=== PATIENT | male | born 1965 | race Caucasian/White ===

== ENCOUNTER 2017-12-01 09:42 | Day surgery (SDC) | payer MEDICAID ==
[~2017-12-01] VITALS: Ht 177.8 cm; Wt 90.9 kg
[2017-12-01] MEDS ORDERED: SODIUM CHLORIDE 0.9% 1,000 ML IV SCH (10:49)
[2017-12-01 10:51] VITALS: BP 105/82
[2017-12-01] MEDS ORDERED: MIRT15TA4 PO (11:06)
[2017-12-01] MEDS ORDERED: MONT10TA9 PO (11:06)
[2017-12-01] MEDS ORDERED: SIMV40TA3 PO (11:06)
[2017-12-01] MEDS ORDERED: MELO15TA24 PO (11:06)
[2017-12-01] MEDS ORDERED: CARV-39 PO (11:06)
[2017-12-01] MEDS ORDERED: ALBU8.5H8 INH (11:06)
[2017-12-01] MEDS ORDERED: SERT100T5 PO (11:06)
[2017-12-01] MEDS ORDERED: SUMA100T4 PO (11:06)
[2017-12-01] MEDS ORDERED: LORA10TA62 PO (11:06)
[2017-12-01] MEDS ORDERED: TERI2.4P INJ (11:06)
[2017-12-01] MEDS ORDERED: TEMA15CA PO (11:06)
[2017-12-01] MEDS ORDERED: VIT1TABL PO (11:06)
[2017-12-01] MEDS ORDERED: DIGO125T PO (11:06)
[2017-12-01] MEDS ORDERED: TRAM100T2 PO (11:07)
[2017-12-01] MEDS ORDERED: TEST30SO INJ (11:12)
[2017-12-01] MEDS ORDERED: ISOPROTERENOL 0.2MG/ML, 5ML ONE (13:46)
[2017-12-01] MEDS ORDERED: MIDAZOLAM 1 MG/ML, 5ML ONE (13:46)
[2017-12-01] MEDS ORDERED: LIDOCAINE 2%, 20ML ONE (13:46)
[2017-12-01] MEDS ORDERED: FENTANYL PF 100 MCG/2ML ONE (13:46)
[2017-12-01] MEDS ORDERED: HEPARIN 1,000 UNITS/ML, 10ML ONE (13:46)
[2017-12-01] MEDS ORDERED: ATROPINE SYRINGE 0.1 MG/ML, 10ML ONE (14:29)
[2017-12-01] MEDS ORDERED: ADENOSINE 6 MG/2 ML ONE (14:45)
[2017-12-01] MEDS ORDERED: TEMAZEPAM 15 MG CAPSULE PO PRN (15:30)
[2017-12-01] MEDS ORDERED: TESTOSTERONE INJ SCH (15:30)
[2017-12-01] MEDS ORDERED: ALBUTEROL SULFATE 2.5 MG/3 ML NPPB PRN (15:30)
[2017-12-01] MEDS ORDERED: SUMATRIPTAN 100 MG TABLET PO PRN (15:30)
[2017-12-01] MEDS ORDERED: SIMVASTATIN 40 MG TABLET PO SCH (21:00)
[2017-12-01] MEDS ORDERED: CARVEDILOL 25 MG TABLET PO SCH (21:00)
[2017-12-01] MEDS ORDERED: SERTRALINE 100MG TABLET PO SCH (21:00)
[2017-12-02] MEDS ORDERED: DIGOXIN 0.125 MG TABLET PO SCH (09:00)
[2017-12-02] MEDS ORDERED: MIRTAZAPINE 15 MG TABLET PO SCH (09:00)
[2017-12-02] MEDS ORDERED: LORATADINE 10 MG TABLET PO SCH (09:00)
[2017-12-02] MEDS ORDERED: MULTIVITS,STRESS FORMULA 1 TABLET PO SCH (09:00)
[2017-12-02] MEDS ORDERED: MONTELUKAST 10 MG TABLET PO SCH (09:00)
[2017-12-02] MEDS ORDERED: TERIPARATIDE INJ SCH (09:00)
[2017-12-02] MEDS ORDERED: MELOXICAM 15 MG TABLET PO SCH (09:00)
== END 2017-12-01 21:24 | disposition home or self-care (01) ==
LOC: CACL 09:42 → 5SO 18:17 → CACL 21:24
PROVIDERS: ATTEND Internal Medicine Cardiovascular Disease
DX: I47.1 Supraventricular tachycardia (principal); R55 Syncope and collapse; I10 Essential (primary) hypertension; F19.90 Other psychoactive substance use, unspecified, uncomplicated; E78.2 Mixed hyperlipidemia; G47.30 Sleep apnea, unspecified; J44.9 Chronic obstructive pulmonary disease, unspecified
CPT/HCPCS: 93620; 93621; 93623; 99156; 99157; C1730; C1894; C2630; J0461; J2250; J3010; J3490; J0153; J1644